=== PATIENT | female | born 1995 | race Caucasian/White ===

== ENCOUNTER 2018-11-03 10:26 | Inpatient (IN) | payer OTHER, BC ==
[2018-11-03 11:12] LABS: BACTERIA (WET MOUNT) 4+ BACTERIA SEEN; EPITHELIALS (WET MOUNT) 4+ EPITHELIALS SEEN; RBCS (WET MOUNT) 2+ RBCS SEEN; T.VAGINALIS (WET MOUNT) NO TRICHOMONAS SEEN; WBCS (WET MOUNT) 4+ WBCS SEEN; YEAST (WET MOUNT) NO YEAST SEEN
[2018-11-03 11:15] LABS: AMORPHOUS SEDIMENT,URINE TRACE /HPF
[2018-11-03 11:17] LABS: APPEARANCE,URINE CLEAR; COLOR,URINE STRAW; GLUCOSE, URINE 50 mg/dL (NEGATIVE)
[2018-11-03 11:18] LABS: BILIRUBIN,URINE NEGATIVE (NEGATIVE); KETONES,URINE NEGATIVE (NEGATIVE); LEUKOCYTE ESTERASE,URINE LARGE (NEGATIVE); NITRITE,URINE NEGATIVE (NEGATIVE); PROTEIN,URINE NEGATIVE (NEGATIVE); URINE SPECIFIC GRAVITY 1.013; UROBILINOGEN,URINE NEGATIVE mg/dL (<2.0)
[2018-11-03 11:34] LABS: UR PRO/CREAT RATIO RESULT 0.5 mg/mg (0.0-0.2); URINE AMPHETAMINES SCREEN NEGATIVE; URINE BARBITURATES SCREEN NEGATIVE; URINE BENZODIAZEPINES SCREEN NEGATIVE; URINE COCAINE SCREEN NEGATIVE; URINE CREATININE 35.6 mg/dL (16-327); URINE MARIJUANA (THC) SCREEN NEGATIVE; URINE METHADONE SCREEN NEGATIVE; URINE PHENCYCLIDINE SCREEN NEGATIVE; URINE PROTEIN 17.6 mg/dL (<12)
[2018-11-03 11:59] LABS: HEMATOCRIT 36.8 % (36.0-47.0); HEMOGLOBIN 12.9 g/dL (12.0-15.5); MEAN CORPUSCULAR HEMOGLOBIN 30.3 pg (27.0-33.4); MEAN CORPUSCULAR HGB CONC 34.9 g/dL (32.0-36.0); MEAN CORPUSCULAR VOLUME 87 fl (80-97); PLATELET COUNT 297 10^3/uL (150-450); RED BLOOD COUNT 4.24 10^6/uL (3.72-5.28); RED CELL DISTRIBUTION WIDTH 12.6 % (11.5-14.0); WHITE BLOOD COUNT 21.4 10^3/uL (4.0-10.5)
[2018-11-03 12:18] LABS: ABSOLUTE LYMPHOCYTES# (MANUAL) 4.5 10^3/uL (0.5-4.7); ABSOLUTE MONOCYTES # (MANUAL) 0.9 10^3/uL (0.1-1.4); BAND NEUTROPHILS % (MANUAL) 1 % (3-5); BASOPHILS % (MANUAL) 0 % (0-2); EOSINOPHILS % (MANUAL) 0 % (0-6); LYMPHOCYTES % (MANUAL) 21 % (13-45); MONOCYTES % (MANUAL) 4 % (3-13); SEGMENTED NEUTROPHILS % (MAN) 74 % (42-78); TOTAL CELLS COUNTED 100; TOXIC GRANULATION SLIGHT
[2018-11-03] MEDS ORDERED: RINGERS SOLUTION,LACTATED 1,000 ML IV PRN (12:18)
[2018-11-03] MEDS ORDERED: RINGERS SOLUTION,LACTATED 1,000 ML IV ONE (12:18)
[2018-11-03 12:19] LABS: ALANINE AMINOTRANSFERASE 22 U/L (9-52); ALBUMIN 3.4 g/dL (3.5-5.0); ALKALINE PHOSPHATASE 121 U/L (38-126); AMYLASE 42 U/L (30-110); ANION GAP 8 (5-19); ASPARTATE AMINO TRANSFERASE 15 U/L (14-36); BILIRUBIN,DIRECT 0.1 mg/dL (0.0-0.4); BILIRUBIN,TOTAL 0.2 mg/dL (0.2-1.3); BLOOD UREA NITROGEN 6 mg/dL (7-20); CALCIUM 9.1 mg/dL (8.4-10.2); CARBON DIOXIDE 21 mmol/L (22-30); CHLORIDE 107 mmol/L (98-107); GLUCOSE 102 mg/dL (75-110); LIPASE 33.4 U/L (23-300); PLATELET COMMENT ADEQUATE; POTASSIUM 4.1 mmol/L (3.6-5.0); RBC MORPHOLOGY COMMENT NORMO-CYTIC/CHROMIC; SODIUM 135.8 mmol/L (137-145); TOTAL PROTEIN 6.2 g/dL (6.3-8.2); URIC ACID 2.7 mg/dL (2.5-6.2)
[2018-11-03] MEDS ORDERED: CEFTRIAXONE INJ 1000 MG VIAL IV SCH (12:30)
[2018-11-03] MEDS ORDERED: ACETAMINOPHEN WITH CODEINE #3 TABLET PO PRN (12:44)
[2018-11-03] MEDS ORDERED: DEXTROSE 50%-WATER 25 GM/50 ML DISP.SYRIN IV PRN ×2 (12:47)
[2018-11-03] MEDS ORDERED: DEXTROSE 40% GEL 15 GM TUBE PO PRN ×2 (12:47)
[2018-11-03] MEDS ORDERED: GLUCAGON,HUMAN RECOMB 1 MG INJ IM PRN (12:47)
[2018-11-03] MEDS ORDERED: CEFTRIAXONE SODIUM 1,000 MG in DEXTROSE 5%-WATER 50 ML IV SCH (13:00)
[2018-11-03] MEDS ORDERED: AZITHROMYCIN 1 GM SUSP PACKET PO ONE (13:00)
[2018-11-03] MEDS ORDERED: AZITHROMYCIN 250 MG TABLET PO ONE (13:06)
[2018-11-03] MEDS ORDERED: AZITHROMYCIN 1 GM SUSP PACKET ONE (13:06)
[2018-11-03] MEDS ORDERED: AZITHROMYCIN 250 MG TABLET ONE (13:07)
[2018-11-03] MEDS: CEFTRIAXONE SODIUM 1,000 MG in DEXTROSE 5%-WATER 50 ML IV SCH (13:18)
--- NOTE | 2018-11-03 13:22 | Admission Physical ---
Datetime Report Generated by CPN: 11/03/2018 13:22 CURRENT ADMISSION Chief Complaint: Maternal Discomfort; Other Chief Complaint Other: Upper abdominal pain and Right CVAT Indication for Induction: Not Applicable Admit Impression : , Intrauterine Admit Plan: Admit to Unit; Observation/Evaluation ALLERGIES Medication Allergies: No Medication Allergies: No Known Allergies (11/03/2018) Latex: No Latex Allergies OBSTETRICAL HISTORY EDC: 01/10/2019 00:00 : 1 Para: 0 Term: 0 : 0 SAB: 0 IAB: 0 Ectopic: 0 Livin Cesareans: 0 VBACs: 0 Multiple Births: 0 Gestational Diabetes: Yes Rh Sensitization: No Incompetent Cervix: No ANGUS: No Infertility: No ART Treatment: No Uterine Anomaly: No IUGR: No Hx Previous C/S: No Macrosomia: No Hx Loss/Stillborn: No PIH: No Hx : No Placenta Previa/Abruption: No Depression/PP Depression: No PTL/PROM: No Post Hemorrhage: No Current Procedures: Ultrasound Obstetrical History Comments: G1- GDM diet controlled SEE RECORDS Alcohol: No Marijuana : No Cocaine: No Other Illicit Drugs: No Cigarettes: Never Smoker. 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 Surgery: No Heart Disease: No Hosp/Surgery: No Autoimmune Disorder: No Anesthetic Complications: No Kidney Disease: No Abnormal Pap Smear: No Neuro/Epilepsy: No Psychiatric Disorders: No Other Medical Diseases: No Hepatitis/Liver Disease: No Significant Family History: No Varicosities/Phlebitis: No Trauma/Violence : No Thyroid Dysfunction: No Medical History Comments: pt denies medical hx INFECTIOUS HISTORY Gonorrhea: No Genital Herpes: No Chlamydia: Yes Tuberculosis: No Syphilis: No Hepatitis: No HIV/AIDS Exposure: No Rash or Viral Illness: No HPV: No Infectious History Comments: +chlam this TAN 07/2018, + chlamydia 09/05/18 (Annotations: Data stored by [facility] on behalf of user) PHYSICAL EXAM General: Normal HEENT: Normal Neurologic: Normal Thyroid: Deferred Heart: Normal Lungs: Normal Breast: Deferred Back: Normal Abdomen: Abnormal Genitourinary Exam: Abnormal Extremities: Normal DTRs: Normal Pelvic Type: Adequate Physical Exam Comments: +epigastric TTP, +right CVAT Vital Signs: Reviewed MEMBRANES Membranes: Intact FETUS A EGA: 30.2 Monitoring: External US FHR- Baseline: 125 Variability: Moderate 6-25bpm Accelerations: 15X15 Decelerations: None FHR Category: Category I Admit Comment: 23yo at 30+2ega presents for evaluation by EMS due to significant upper abdominal pain and right sided back pain. She reports care in [place]. +right CVAT and + epigastric ttp and + RUQ ttp. +Chlamydia 06/2018 and per notes negative Test of cure in july but no result of a GC/CT done in july. Pt reports she was treated 06/2018. Then reviewed with patient repeat GC/CT done 09/05/2018 which was positive - pt reports she was not treated at this time. GC/CT today and will treat. Also noted blood in urine and + bacteria with + LE - urine culture pending. + CVAT - will admit for pain control, straining urine and Abx (rocephin 1g Q 12hr). Also noted elevated BPs which could be due to pain - P:C was 0.5 (could be due to blood in urine/UTI) but will also collect 24 hr UTP. PIH labs unremarkable. Early 1 hr GTT normal. Repeat GTT at 28wks 192 and 3 hr GTT 141/241/229/178. Fastings per notes are very high 120-150 but PP are wnl per notes. Will add SSI and NPH per protocol (2/3 to 1/3 split with 0.3units/Kg - total daily would be 33.3 units). NPH QHS with snack would be 8 units. Carb pattern 4 diet. US for cervical length and for EFW ordered and RUQ renal US ordered. WBC count is 21.4 and lactic acid pending. pt feels warm but afebrile currently. Blood cultures ordered. Amylase/lipase negative, LFTS wnl INFORMED CONSENT Informed Consent Obtained: Risks, Benefits and Alternatives Discussed Signature: with User ID: [email or web address]
[2018-11-03] MEDS ORDERED: ACETAMINOPHEN WITH CODEINE #3 TABLET ONE (13:24)
[2018-11-03] MEDS: ACETAMINOPHEN WITH CODEINE #3 TABLET PO PRN ×2 (13:29→19:37)
[2018-11-03 13:30] LABS: CHLAM PCR NOT DETECTED (NOT DETECT)
--- NOTE | 2018-11-03 13:37 | RADIOLOGY REPORT (SQ) ---
EXAM DESCRIPTION: U/S ABDOMEN LTD W/DOPPLER COMPLETED DATE/TIME: 11/03/2018 1:19 pm REASON FOR STUDY: right upper quadrant, pyelo in preg COMPARISON: OB ultrasound 11/03/2018 TECHNIQUE: Dynamic and static grayscale images acquired of the abdomen and recorded on PACS. Additio nal selected color Doppler and spectral images recorded. LIMITATIONS: patient, midline bowel gas, large body habitus FINDINGS: PANCREAS: Midline pancreas unremarkable LIVER: No masses. Echotexture normal. LIVER VASCULATURE: Normal directional flow of the main portal vein and hepatic veins. GALLBLADDER: No stones. Normal wall thickness. No pericholecystic fluid. ULTRASOUND-DETECTED MIRZA'S SIGN: Negative. INTRAHEPATIC DUCTS AND COMMON DUCT: CBD and intrahepatic ducts normal caliber. No filling defects. INFERIOR VENA CAVA: Not well seen AORTA: Not well seen RIGHT KIDNEY: Normal size. Normal echogenicity. No solid or suspicious masses. No hydronephrosis. No calcifications. PERITONEAL AND RIGHT PLEURAL SPACE: No ascites or effusions. OTHER: Results discussed with Dr. Jara IMPRESSION: NORMAL RIGHT UPPER QUADRANT ULTRASOUND. TECHNICAL DOCUMENTATION: JOB ID: [id number] [employer]- All Rights Reserved Reading location - IP/workstation name: [email or web address]
--- NOTE | 2018-11-03 13:40 | RADIOLOGY REPORT (SQ) ---
EXAM DESCRIPTION: U/S OB LIMITED COMPLETED DATE/TIME: 11/03/2018 1:19 pm REASON FOR STUDY: abd pain, cervical length, FWB, EFW, Fluid COMPARISON: Abdominal ultrasound same date TECHNIQUE: Limited transabdominal and endovaginal grayscale ultrasound for evaluation of specific re quested obstetrical parameters. LIMITATIONS: Large patient FINDINGS: CERVICAL LENGTH: Measured on limited endovaginal scanning, 3 cm in length Closed. NKECHI: Reported as 8.3 cm by the technologist. Largest pocket 3.3 cm FHR: 150 beats per minute. PRESENTATION: Cephalic. PLACENTA: Fundal posterior ANATOMY: Not assessed OTHER: Report discussed with Susy Jara MD IMPRESSION: LIMITED OBSTETRICAL ULTRASOUND WITH MEASURED PARAMETERS DELINEATED ABOVE. Trimester of : Third trimester - 28 weeks to delivery. TECHNICAL DOCUMENTATION: JOB ID: [id number] [employer]- All Rights Reserved Reading location - IP/workstation name: [email or web address]
--- NOTE | 2018-11-03 13:50 | PDOC PROGRESS REPORT ---
Subjective Progress Note for:: 11/03/18 Subjective:: results from US. Reviewed with Dr. Enriquez Reason For Visit: PYELONEPHRITIS Physical Exam - Physical Exam Vital Signs: Intake & Output 11/02/18 11/03/18 11/04/18 06:59 06:59 06:59 Weight 110.7 kg General appearance: PRESENT: no acute distress, well-developed, well-nourished Head exam: PRESENT: atraumatic, normocephalic Respiratory exam: PRESENT: clear to auscultation mary, symmetrical, unlabored Cardiovascular exam: PRESENT: RRR. ABSENT: diastolic murmur, rubs, systolic murmur Vascular exam: PRESENT: normal capillary refill GI/Abdominal exam: PRESENT: normal bowel sounds, soft, tenderness - RUQ TTP, + CVAT, + episgastric ttp. ABSENT: distended, guarding, mass, organolmegaly, rebound Rectal exam: PRESENT: deferred Musculoskeletal exam: PRESENT: ambulatory Neurological exam: PRESENT: alert, awake, oriented to person, oriented to place, oriented to time, oriented to situation, CN II-XII grossly intact. ABSENT: motor sensory deficit Skin exam: PRESENT: dry, intact, warm. ABSENT: cyanosis, rash Result Laboratory Results: 11/03/18 11:37 11/03/18 11:37 11/03/18 11/03/18 11/03/18 10:40 11:37 11:37 WBC 21.4 H RBC 4.24 Hgb 12.9 Hct 36.8 MCV 87 MCH 30.3 MCHC 34.9 RDW 12.6 Plt Count 297 Seg Neutrophils % Not Reportable Lymphocytes % Not Reportable Monocytes % Not Reportable Eosinophils % Not Reportable Basophils % Not Reportable Absolute Neutrophils Not Reportable Absolute Lymphocytes Not Reportable Absolute Monocytes Not Reportable Absolute Eosinophils Not Reportable Absolute Basophils Not Reportable Sodium 135.8 L Potassium 4.1 Chloride 107 Carbon Dioxide 21 L Anion Gap 8 BUN 6 L Creatinine 0.26 L Est GFR ( Amer) > 60 Est GFR (Non-Af Amer) > 60 Glucose 102 Uric Acid 2.7 Calcium 9.1 Total Bilirubin 0.2 AST 15 ALT 22 Alkaline Phosphatase 121 Total Protein 6.2 L Albumin 3.4 L Amylase 42 Lipase 33.4 Urine Color STRAW Urine Appearance CLEAR Urine pH 6.0 Ur Specific [place] 1.013 Urine Protein NEGATIVE Urine Glucose (UA) 50 H Urine Ketones NEGATIVE Urine Blood MODERATE H Urine Nitrite NEGATIVE Ur Leukocyte Esterase LARGE H Urine WBC (Auto) 34 Urine RBC (Auto) 3 Impressions: Obstetrics Ultrasound 11/03/18 12:36 IMPRESSION: LIMITED OBSTETRICAL ULTRASOUND WITH MEASURED PARAMETERS DELINEATED ABOVE. Trimester of : Third trimester - 28 weeks to delivery. Abdomen Ultrasound 11/03/18 12:42 IMPRESSION: NORMAL RIGHT UPPER QUADRANT ULTRASOUND. Status: Imported from PACS Assessment & Plan - Diagnosis (1) Carrier of group B Streptococcus Is this a current diagnosis for this admission?: Yes Plan: treat in labor (2) Chlamydia infection affecting Qualifiers: Trimester: third trimester Qualified Code(s): O98.813 - Other maternal infectious and parasitic diseases complicating , third trimester; A74.9 - Chlamydial infection, unspecified Is this a current diagnosis for this admission?: Yes Plan: labs from records with positive on 09/05 - no treatment recorded and patient reports no treatment. Rx done today. GC/CT finally reported as negative and patient advised of results. 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 urine cx pending. US reviewed with Dr. Enriquez no e/o hydronephrosis, no e/o gallstones Possibly qualitative low NKECHI due to pockets measured with arm/cord in them - possible NKECHI or less. Will get actimprom and then repeat NKECHI after IV hydration. - Time Time Spent with patient: 15-24 minutes Medications reviewed and adjusted accordingly: Yes Anticipated discharge: Home Within: within 24 hours - Inpatient Certification Based on my medical assessment, after consideration of the patient's comorbidities, presenting symptoms, or acuity I expect that the services needed warrant INPATIENT care.: Yes I certify that my determination is in accordance with my understanding of Medicare's requirements for reasonable and necessary INPATIENT services [42 CFR 412.3e].: Yes Medical Necessity: Need For IV Fluids, Need for Pain Control, Need for IV Antibiotics
[2018-11-03] MEDS ORDERED: INSULIN REG, HUMAN 100 UNIT/ML 3 ML VIAL (PYX) ONE (16:11)
[2018-11-03] MEDS: INSULIN REG, HUMAN 100 UNIT/ML 3 ML VIAL (PYX) SUBCUT SCH ×3 (16:11→22:00)
[2018-11-03] MEDS ORDERED: INSULIN NPH (ISOPHANE), HUMAN 100 UNIT/ML 3 ML SUBCUT SCH (22:00)
[2018-11-04] MEDS: CEFTRIAXONE SODIUM 1,000 MG in DEXTROSE 5%-WATER 50 ML IV SCH ×2 (00:48→13:12)
[2018-11-04 07:25] LABS: ABSOLUTE BASOPHILS # (AUTO) 0.1 10^3/uL (0.0-0.2); ABSOLUTE EOSINOPHILS # (AUTO) 0.4 10^3/uL (0.0-0.6); ABSOLUTE LYMPHOCYTES (AUTO) 2.8 10^3/uL (0.5-4.7); ABSOLUTE MONOCYTES (AUTO) 0.6 10^3/uL (0.1-1.4); ABSOLUTE NEUT (AUTO) 9.3 10^3/uL (1.7-8.2); BASOPHILS % (AUTO) 0.6 % (0-2); EOSINOPHILS % (AUTO) 2.8 % (0-6); HEMATOCRIT 33.7 % (36.0-47.0); HEMOGLOBIN 11.7 g/dL (12.0-15.5); LYMPHOCYTES % (AUTO) 21.2 % (13-45); MEAN CORPUSCULAR HEMOGLOBIN 30.5 pg (27.0-33.4); MEAN CORPUSCULAR HGB CONC 34.8 g/dL (32.0-36.0); MEAN CORPUSCULAR VOLUME 88 fl (80-97); MONOCYTES % (AUTO) 4.8 % (3-13); PLATELET COUNT 281 10^3/uL (150-450); RED BLOOD COUNT 3.84 10^6/uL (3.72-5.28); RED CELL DISTRIBUTION WIDTH 12.6 % (11.5-14.0); SEGMENTED NEUTROPHILS % (AUTO) 70.6 % (42-78); TOTAL CELLS COUNTED % (AUTO) 100 %; WHITE BLOOD COUNT 13.1 10^3/uL (4.0-10.5)
--- NOTE | 2018-11-04 09:58 | RADIOLOGY REPORT (SQ) ---
EXAM DESCRIPTION: U/S OB LIMITED COMPLETED DATE/TIME: 11/04/2018 9:50 am REASON FOR STUDY: NKECHI and SDP/MVP COMPARISON: None. TECHNIQUE: Limited transabdominal grayscale ultrasound for evaluation of specific requested obstetri shruti parameters. LIMITATIONS: None. FINDINGS: CERVICAL LENGTH: 3.7 cm Closed. NKECHI: 11.3 cm. FHR: 133 beats per minute. PRESENTATION: Cephalic. PLACENTA: Not assessed ANATOMY: Not assessed OTHER: No other significant findings. IMPRESSION: LIMITED OBSTETRICAL ULTRASOUND WITH MEASURED PARAMETERS DELINEATED ABOVE. Trimester of : Third trimester - 28 weeks to delivery. TECHNICAL DOCUMENTATION: JOB ID: [id number] [employer]- All Rights Reserved Reading location - IP/workstation name: [email or web address]
[2018-11-04 11:33] LABS: URINE PROTEIN 13.1 mg/dL (<12)
[2018-11-04 11:34] LABS: 24 HOUR URINE PROTEIN RESULT 459 mg/day (42-225)
--- NOTE | 2018-11-04 12:19 | PDOC DISCHARGE SUMMARY ---
General - Admit/Disc Date/PCP Admission Date/Primary Care Provider: 11/03/18 12:32 Discharge Date: 11/04/18 - Discharge Diagnosis (2) Carrier of group B Streptococcus Is this a current diagnosis for this admission?: Yes (3) Chlamydia infection affecting Is this a current diagnosis for this admission?: Yes (4) Gestational diabetes mellitus (GDM) Is this a current diagnosis for this admission?: Yes (5) Gestational hypertension Is this a current diagnosis for this admission?: Yes (6) Obesity affecting in third trimester Is this a current diagnosis for this admission?: Yes (7) Pyelonephritis affecting Is this a current diagnosis for this admission?: Yes - Additional Information Home Medications: Pnv 102/Iron/Folate 1/Dss/Dha [Vitafol Fe+ Docusate Combo Pck] 1 tab PO DAILY 11/03/18 History of Present Illness History of Present Illness: ADELFO CARDENAS is a 23 year old female Hospital Course Hospital Course: has responded well to antibiotics for pyelonephritis and pain significantly improved. blood glucose has also improved with NPH 8 units in the evening. 24 hour urine protien did return at 459 therefore patient is pre-eclamptic and likely Superimposed as hypertension seems to be pre-existing. Physical Exam - Physical Exam Vital Signs: Temp Pulse Resp BP Pulse Ox 98.4 F 71 16 140/62 H 100 11/04/18 07:59 11/04/18 07:59 11/04/18 07:59 11/04/18 07:59 11/04/18 07:59 Intake & Output 11/03/18 11/04/18 11/05/18 06:59 06:59 06:59 Intake Total 530 Balance 530 Weight 110.9 kg General appearance: PRESENT: no acute distress, cooperative - abdomen is soft/gravid/nontender. Result Laboratory Results: 11/04/18 07:11 11/03/18 11:37 11/03/18 11/03/18 11/03/18 10:40 11:37 14:15 WBC RBC Hgb Hct MCV MCH MCHC RDW Plt Count Seg Neutrophils % Lymphocytes % Monocytes % Eosinophils % Basophils % Absolute Neutrophils Absolute Lymphocytes Absolute Monocytes Absolute Eosinophils Absolute Basophils Sodium 135.8 L Potassium 4.1 Chloride 107 Carbon Dioxide 21 L Anion Gap 8 BUN 6 L Creatinine 0.26 L Est GFR ( Amer) > 60 Est GFR (Non-Af Amer) > 60 Glucose 102 Lactic Acid Uric Acid 2.7 Calcium 9.1 Total Bilirubin 0.2 AST 15 ALT 22 Alkaline Phosphatase 121 Total Protein 6.2 L Albumin 3.4 L Amylase 42 Lipase 33.4 Ur 24 Hour Volume 3500 Ur Total Protein 24 Hr 459 H Blood Type O POSITIVE Antibody Screen NEGATIVE 11/03/18 11/04/18 14:15 07:11 WBC 13.1 H RBC 3.84 Hgb 11.7 L Hct 33.7 L MCV 88 MCH 30.5 MCHC 34.8 RDW 12.6 Plt Count 281 Seg Neutrophils % 70.6 Lymphocytes % 21.2 Monocytes % 4.8 Eosinophils % 2.8 Basophils % 0.6 Absolute Neutrophils 9.3 H Absolute Lymphocytes 2.8 Absolute Monocytes 0.6 Absolute Eosinophils 0.4 Absolute Basophils 0.1 Sodium Potassium Chloride Carbon Dioxide Anion Gap BUN Creatinine Est GFR ( Amer) Est GFR (Non-Af Amer) Glucose Lactic Acid 1.7 Uric Acid Calcium Total Bilirubin AST ALT Alkaline Phosphatase Total Protein Albumin Amylase Lipase Ur 24 Hour Volume Ur Total Protein 24 Hr Blood Type Antibody Screen Impressions: Abdomen Ultrasound 11/03/18 12:42 IMPRESSION: NORMAL RIGHT UPPER QUADRANT ULTRASOUND. Obstetrics Ultrasound 11/04/18 00:00 IMPRESSION: LIMITED OBSTETRICAL ULTRASOUND WITH MEASURED PARAMETERS DELINEATED ABOVE. Trimester of : Third trimester - 28 weeks to delivery. Plan Discharge Plan: I d/w patient regarding her elevated 24 hour urine protein and her stabilizing blood sugars. She is agreeable to continuing the NPH at curent dose and will follow up in AM with her regular OB doctor who she indicates was planning to start her on insulin this week. Will aslo send her home with [facility] for the pyleonephritis/complicated UTI. She understands to contact her regular doctor anne in the morning. Time Spent: Less than 30 Minutes Acute Heart Failure - Is this a Heart Failure Patient?: No
[2018-11-04 16:23] VITALS: BP 138/62
== END 2018-11-04 15:41 | disposition home or self-care (01) | DRG 831 ==
LOC: LC 10:26 → OBSVTOIN 12:32 → LR 12:32 → 2S 15:15
PROVIDERS: ADMIT Student in an Organized Health Care Education/Training Program; ATTEND Student in an Organized Health Care Education/Training Program
DX: O23.03 Infections of kidney in pregnancy, third trimester (principal); O11.3 Pre-existing hypertension with pre-eclampsia, third trimester; O24.410 Gestational diabetes mellitus in pregnancy, diet controlled; O99.820 Streptococcus B carrier state complicating pregnancy; O99.213 Obesity complicating pregnancy, third trimester; E66.9 Obesity, unspecified; Z3A.30 30 weeks gestation of pregnancy; Z86.19 Personal history of other infectious and parasitic diseases
CPT/HCPCS: 36415; 76705; 76815; 80053; 80307; 81001; 82150; 82570; 82962; 83036; 83605; 83615; 83690; 84112; 84156; 84550; 85025; 86592; 86850; 86900; 86901; 87040; 87086; 87088; 87210; 87491; 87591; 93976; J0696; J1815; J7060; J7120; Q0144